=== PATIENT | female | born 1995 | race American Indian/Alaskan Native ===

== ENCOUNTER 2019-01-06 08:39 | Emergency (ER) | payer SELFPAY ==
[2019-01-06 08:45] VITALS: BP 115/68
[2019-01-06] MEDS ORDERED: IBUPROFEN PO ONE (09:50)
--- NOTE | 2019-01-06 09:50 | Emergency Department Report ---
HPI - General Chief Complaint: Pain General Time Seen by Provider: 01/06/19 09:49 - HPI HPI: This is a 23-year-old female here reported that she is a cold and cough symptoms 1 week and h body aches that started 2 days ago. She reports chills but did not take her temperature. Patient is also complaining that she thinks she has a urinary tract infection based on previous experiences that she is having urinary burning with some frequency but denies any abdominal or back pain. She also said based on previous experience she has bacterial vaginosis and would like to be treated. She says she has not been sexually active last menstrual period is 01/06/2018. Pain on urination with burning and 2/then. Denies any shortness of breath or chest pain. Denies any nausea or vomiting. [id number] medication is not helping her patient ED Past Medical Hx - Past Medical History Previous Medical History?: Yes Additional medical history: PCOS - Surgical History Past Surgical History?: Yes Additional Surgical History: Lap for PCOS, hernia repair - Family History Family history: hypertension - Social History Smoking Status: Never Smoker Substance Use Type: Marijuana - Medications Home Medications: Home Medications Medication Instructions Recorded Confirmed Last Taken Type Amoxicillin/K Clav Tab [Augmentin 1 tab PO Q12HR #20 tab 01/06/19 Unknown Rx 875MG TAB] Cetirizine HCl [ZyrTEC] 10 mg PO QAM 14 Days #14 capsule 01/06/19 Unknown Rx Fluticasone [Flonase] 1 spray NS QDAY 14 Days #1 bottle 01/06/19 Unknown Rx Ibuprofen [Motrin] 600 mg PO Q8H PRN #12 tablet 01/06/19 Unknown Rx ED Review of Systems ROS: Stated complaint: BODY PAIN/CHILLS Other details as noted in HPI Constitutional: chills Eyes: denies: eye pain, eye discharge ENT: congestion. denies: ear pain, throat pain, dental pain Respiratory: cough. denies: shortness of breath, wheezing Cardiovascular: denies: chest pain, palpitations, dyspnea on exertion, edema, syncope Gastrointestinal: denies: abdominal pain, nausea, vomiting, diarrhea, constipation Genitourinary: dysuria, frequency, discharge. denies: hematuria, abnormal mens es Skin: denies: rash Neurological: denies: headache, numbness, paresthesias Physical Exam - Physical Exam Vital Signs: Vital Signs 01/06/19 08:44 Temperature 99.4 F Pulse Rate 100 H Respiratory 16 Rate Blood Pressure 115/68 O2 Sat by Pulse 98 Oximetry General: This is a 23-year-old female well-nourished well-developed in no acute distress Physical Exam: Head: Normocephalic atraumatic Ears:BIateral TM congested without erythema and loss of bony landmarks. Ben EAC with normal exam. No mastoid bone tenderness. Mouth: Moist, no pharyngeal erythema or exudate . UVULA midline and oral airways patent. No peritonsillar abscess Neck: Nontender to palpate, supple, normal range of motion. No adenopathy. No c- spine tenderness. Nose: Bilateral nasal mucosa congested/erythema with clear drainage. Maxillary and frontal sinuses tender to palpate. Eyes: Bilateral Sclerae and conjunctiva without injection. Bilateral pupils equal and reactive to light. Bilateral lids are normal. Normal accommodation.BEOMI. Back: No paraspinal tenderness, no vertebral tenderness, no rash. Lungs: Clear to auscultate bilaterally, no rhonchi wheezes or rales. Normal work of breathing and no chest wall tenderness. Dry cough CV: S1, S2. Regular rate and rhythm negative murmur. Capillary refill is less than 3 seconds Abdomen: Nontender to palpation in all quadrants: No guarding or rebound tendern ess. Positive bowel sounds in all quadrants. No CVA tenderness Extremity: No clubbing, cyanosis or edema. +2 pulses in all extremities and no neurovascular compromise Skin: Clean dry and intact, no rashes or lesions Psych: Normal mood and behavior ED Course Vital Signs 01/06/19 08:44 Temperature 99.4 F Pulse Rate 100 H Respiratory 16 Rate Blood Pressure 115/68 O2 Sat by Pulse 98 Oximetry - Reevaluation(s) Reevaluation #1: 01/06/19 12:15 Patient given ibuprofen 800 mg. Emergency room for generalized aching in which child. She has a urinary tract infection and started on Keflex. ED Medical Decision Making - Lab Data Lab Results 01/06/19 Range/Units Unknown Urine Color Yellow (Yellow) Urine Turbidity Slightly-cloudy (Clear) Urine pH 6.0 (5.0-7.0) Ur Specific [place] 1.023 (1.003-1.030) Urine Protein <15 mg/dl (Negative) mg/dL Urine Glucose (UA) Neg (Negative) mg/dL Urine Ketones Neg (Negative) mg/dL Urine Blood Neg (Negative) Urine Nitrite Pos (Negative) Urine Bilirubin Neg (Negative) Urine Urobilinogen < 2.0 (<2.0) mg/dL Ur Leukocyte Esterase Neg (Negative) Urine WBC (Auto) 3.0 (0.0-6.0) /HPF Urine RBC (Auto) 1.0 (0.0-6.0) /HPF U Epithel Cells (Auto) 3.0 (0-13.0) /HPF Urine Bacteria (Auto) 1+ (Negative) /HPF Urine Mucus Few /HPF Urine HCG, Qual Negative (Negative) Urine culture sent - Medical Decision Making 33-year-old female presents to emergency room complaining of cough and cold symptoms with urinary tract infection symptoms that she says the last time she had this she ended up being admitted for kidney infection that had spread to her blood. She denies any nausea vomiting or any fever report chills. She is not having any flank pain or no CVA tenderness. Please see notes for detail Urinalysis-positive for nitrites, reports cloudy, positive bacteria and test is negative. Assessment/plan 1: Acute cystitis without hematuria-started on Rocephin 1 g IM and discharged home on Augmentin 2: U ordered a clonidine,RI cough and congestion and patient has symptoms for over a week-augment social cover this and will add Zyrtec and Flonase Body ache-given Motrin 800 mg by mouth and pain has resolved. I discussed the patient that she is to follow-up with her primary care physician and if she does not have a primary care physician to follow up at [facility] for primary care visit. She voiced understanding. Patient is stable, pain controlled and I discussed with her that she has a urinary tract in fection plus upper respiratory with cough and congestion and she voiced understanding. I also told her that I will cover her for bacterial vaginosis but she needs to go have test for for STD. Patient forced understanding. Discharged home with prescription for Zyrtec, Flonase, Augmentin which will cover her UTI and upper respiratory symptoms. She was also given Motrin to cover her low-grade temp and body aches. Discharged home in stable condition. Critical care attestation.: If time is entered above; I have spent that time in minutes in the direct care of this critically ill patient, excluding procedure time. ED Disposition Clinical Impression: URI with cough and congestion, Acute cystitis without hematuria, Body aches Disposition: TO HOME OR SELFCARE Is pt being admited?: No Does the pt Need Aspirin: No Condition: Stable Instructions: Upper Respiratory Infection (ED), Dysuria (ED), Urinary Tract Infection in Women (ED), Musculoskeletal Pain (ED) Additional Instructions: Please that medication as prescribed. Follow-up with your primary care doctor in 2 days Increasing fluid intake If he develops fever, nausea and/or vomiting, abdominal or back pain, presented to the emergency room STAC[facility] Please followup with Primary care doctor or [facility] for STD testing Please do not drink alcohol while taking Flagyl as these did have a negative reaction Referrals: [facility] Depart [Outside] - 3-5 Days [facility] [place] MD [Primary Care Provider] - 01/08/19 Forms: Work/School Release Form(ED), Accompanied Note
[2019-01-06 11:29] LABS: Bacteria,Urine 1+ /HPF (Negative); Bilirubin,Urine NEG (Negative); Blood,Urine NEG (Negative); Color,Urine Yellow (Yellow); Mucus,Urine FEW /HPF; Protein,Urine <15 mg/dL mg/dL (Negative); Urobilinogen,Urine < 2.0 mg/dL (<2.0)
[2019-01-06 11:30] LABS: HCG Qualitative,Urine Negative (Negative)
[2019-01-06] MEDS ORDERED: ROCEPHIN IM STA (12:15)
[2019-01-06] MEDS ORDERED: XYLOCAINE 1% MPF 5 mL INFILTRATI ONE (12:15)
== END 2019-01-06 13:15 | disposition home or self-care (01) ==
LOC: ED 08:39
DX: J06.9 Acute upper respiratory infection, unspecified (principal); N30.00 Acute cystitis without hematuria; Z88.5 Allergy status to narcotic agent
CPT/HCPCS: 81001; 81025; 87076; 87086; 87186; 96372; 99283; J0696